=== PATIENT | female | born 1960 | race Caucasian/White ===

== ENCOUNTER → 2018-10-07 | Outpatient (CLI) | payer BC | LOC: PLD 08:57 → LAB SHORT 08:57 | DX: D48.5 Neoplasm of uncertain behavior of skin (principal) | CPT/HCPCS: 88304 ==

== ENCOUNTER 2022-02-17 08:56 | Emergency (ER) | payer BC ==
[~2022-02-17] VITALS: Ht 157.5 cm; Wt 108.9 kg
[2022-02-17] MEDS ORDERED: METFORMIN HCL500 M3 PO (09:49)
[2022-02-17] MEDS ORDERED: LOSA50 PO (09:49)
== END 2022-02-17 11:05 | disposition home or self-care (01) ==
LOC: ER 08:56
DX: R04.0 Epistaxis (principal); I10 Essential (primary) hypertension; E11.9 Type 2 diabetes mellitus without complications; Z91.013 Allergy to seafood; Z79.899 Other long term (current) drug therapy; Z79.84 Long term (current) use of oral hypoglycemic drugs; Z87.891 Personal history of nicotine dependence
CPT/HCPCS: 99283

== ENCOUNTER 2022-11-01 07:07 | Day surgery (SDC) | payer BC ==
[2022-11-01] VITALS (11 sets, daily range): BP systolic 144–165; BP diastolic 67–89
[~2022-11-01] VITALS: Ht 157.5 cm; Wt 102.2 kg
[~2022-11-01 07:07] MED LIST: LOSA50 PO; METFORMIN HCL500 M3 PO
--- NOTE | 2022-11-01 08:01 | NUR ---
Ambulatory in Day Surgery. History, Chart, Medications and Allergies reviewed before start of procedure. Lungs clear T/O to Auscultation. Patient confirms NPO status and agrees with scheduled surgery. Pre-Op teaching done. Pt verbalizes understanding. Patient States Post-Procedure ride home has been arranged. PT BELONGINGS PLACED UNDERNEATH GURNEY FOR SAFEKEEPING. PT GLASSES TAKEN TO PACU FOR SAFEKEEPING.
--- NOTE | 2022-11-01 10:04 | NUR ---
REPORT RECIEVED. PT SITTING UP IN BED TOLERING PO FLUIDS. DENIES PAIN AND NAUSEA. VSS ON ROOM AIR
--- NOTE | 2022-11-01 10:36 | NUR ---
Patient up to Ambulate independently. Gait steady. UP TO RESTROOM, LIGHT BLEEDING. PAD AND UNDERWEAR PROVIDED Discharge instructions reviewed with patient. Patient verbalizes understanding. Copy given to patient to take home. Discharged via wheelchair to private car for ride home.
== END 2022-11-01 10:38 | disposition home or self-care (01) ==
LOC: ORSCMMR 07:07 → ORD 08:45 → ORSCMMR 10:38
PROVIDERS: Obstetrics & Gynecology
PROC: 0UDB8ZX Extraction of Endometrium, Via Natural or Artificial Opening Endoscopic, Diagnostic (ICD-10-PCS; principal; 2022-11-01 08:45)
DX: N85.00 Endometrial hyperplasia, unspecified (principal); D25.9 Leiomyoma of uterus, unspecified; N95.8 Other specified menopausal and perimenopausal disorders; I10 Essential (primary) hypertension; Z87.891 Personal history of nicotine dependence; R73.03 Prediabetes; Z79.84 Long term (current) use of oral hypoglycemic drugs; Z79.899 Other long term (current) drug therapy
CPT/HCPCS: 82947; 88305; J1100; J1885; J2250; J2405; J2704; J3010; J7120

== ENCOUNTER 2022-12-26 07:11 | Day surgery (SDC) | payer BC ==
[~2022-12-26] VITALS: Ht 156 cm; Wt 102.7 kg
[2022-12-26 07:37] VITALS: BP 156/68
--- NOTE | 2022-12-26 08:07 | NUR ---
Ambulatory in Day Surgery. History, Chart, Medications and Allergies reviewed before start of procedure. Patient states colon prep results yellow/clear. Patient confirms NPO status and agrees with scheduled surgery. Pre-Op teaching done. Pt verbalizes understanding. Patient States Post-Procedure ride home has been arranged.
--- NOTE | 2022-12-26 08:35 | NUR ---
12/26/22 0835 Alexandria Grady History, Chart, Medications and Allergies reviewed before start of procedure.MONITOR INTACT WITH CONTINUOUS PULSE OXIMETRY, CONTINUOUS END TITAL CO2, AND INTERMITTENT BLOOD PRESSURE.3-LEAD EKG REVIEWED WITH PHYSICIAN PRIOR TO START OF PROCEDURE.O2 VIA N/C INTACT THROUGHOUT SEDATION/PROCEDURE.
[2022-12-26 08:50] VITALS: BP 126/64
[2022-12-26 09:05] VITALS: BP 130/60
--- NOTE | 2022-12-26 09:35 | NUR ---
Discharge instructions reviewed with patient. Patient verbalizes understanding. Copy given to patient to take home. Discharged via wheelchair to private car for ride home.
== END 2022-12-26 09:15 | disposition home or self-care (01) ==
LOC: ORSCMMR 07:11 → ORD 08:00 → ORSCMMR 09:15
PROVIDERS: Internal Medicine Gastroenterology
PROC: 0DBK8ZX Excision of Ascending Colon, Via Natural or Artificial Opening Endoscopic, Diagnostic (ICD-10-PCS; principal; 2022-12-26 08:00)
PROC: 0DBN8ZX Excision of Sigmoid Colon, Via Natural or Artificial Opening Endoscopic, Diagnostic (ICD-10-PCS; principal; 2022-12-26 08:00)
DX: Z12.11 Encounter for screening for malignant neoplasm of colon (principal); Z86.010 Personal history of colon polyps; D12.5 Benign neoplasm of sigmoid colon; K63.5 Polyp of colon; I10 Essential (primary) hypertension; E11.9 Type 2 diabetes mellitus without complications; E66.01 Morbid (severe) obesity due to excess calories; Z68.41 Body mass index [BMI] 40.0-44.9, adult; Z79.84 Long term (current) use of oral hypoglycemic drugs; Z79.899 Other long term (current) drug therapy
CPT/HCPCS: 82947; 88305; J2001; J2704; J7120